=== PATIENT | female | born 2000 | race Caucasian/White ===

== ENCOUNTER 2023-02-24 01:32 | Emergency (ER) | payer SELFPAY ==
--- NOTE | ~2023-02-24 | XR_ITS ---
Clinical Indication: Pain PA and lateral views of the chest: Comparison: None Findings: The lungs are clear, without evidence of focal consolidation or pleural effusion. Cardiome diastinal silhouette is within normal limits. Bones and soft tissues are unremarkable. Impression: Normal chest. Reviewed, dictated and finalized at location . Impression: Normal chest.
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
== END 2023-02-24 08:44 | disposition home or self-care (01) ==
PROVIDERS: Emergency Provider General Practice
DX: S29.012A Strain of muscle and tendon of back wall of thorax, initial encounter (principal); F17.290 Nicotine dependence, other tobacco product, uncomplicated; V43.53XA Car driver injured in collision with pick-up truck in traffic accident, initial encounter
CPT/HCPCS: 71046; 99283; A9270

== ENCOUNTER 2023-09-21 15:20 | Emergency (ER) | payer OTHER, SELFPAY ==
--- NOTE | ~2023-09-21 | XR_ITS ---
EXAMINATION: XR chest 1V portable Exam Date/Time: 09/21/2023 19:12 TELEPHONIC NURSE CASE MANAGER HISTORY: congestion, cp, sob; c/f PNA Comparison: 02/24/2023. RESULT: Lines, tubes, and devices: None. Lungs and pleura: Clear. Cardiomediastinal silhouette: Stable. Other: No acute osseous or upper abdominal finding. IMPRESSION: No acute cardiopulmonary process. Reviewed, dictated and finalized at location K. PHONIC NURSE CASE MANAGER
[2023-09-21 15:22] VITALS: BP 144/101; PULSE 93; RESP 20; TEMP 36.3; O2SAT 100
--- NOTE | 2023-09-21 15:26 | ECG_ITS ---
Measurements Intervals [place] Rate: 87 P: 46 [place]: 143 QRS: 51 QRSD: 92 T: 6 QT: 366 QTc: 441 Interpretive Statements SINUS RHYTHM WITH SINUS ARRHYTHMIA NONSPECIFIC T-WAVE ABNORMALITY NO PREVIOUS ECG AVAILABLE FOR COMPARISON Electronically Signed On 09-21-2023 20:18:47 REGISTERED RESPIRATORY THERAPIST by Milka Savage M.D.
[2023-09-21 16:12] LABS: Influenza A QL RT-PCR Negative (Negative); Influenza B QL RT-PCR Negative (Negative); RSV RNA, RT-PCR Negative (Negative); SARS-CoV-2 RNA PCR Negative (Negative)
[2023-09-21 18:11] VITALS: O2SAT 100
--- NOTE | 2023-09-21 18:34 | ED.URI ---
HPI - URI/Sore Throat General Chief Complaint: Upper Respiratory Infection Stated Complaint: HARD TO CATCH BREATH,CONGESTION,CHILLS BODY ACHES Time Seen by Provider: 09/21/23 18:33 Source: patient Mode of arrival: ambulatory Limitations: no limitations History of Present Illness HPI Narrative: 23 yo who presents with congestion. She has been having chills and body aches for 1 week. No cough. She is experiencing shortness of breath and chest pain. Her chest feels tight and she is lightheaded at times. She thought it was heartburn because after she eats it is sometimes difficult to swallow and she felt like she had acid reflux on with a burning taste. She tried TUms, Alkaseltzer and omeprazole. She also tried an inhaler she had at home for unclear reasons (no diagnosis of asthma or bronchitis, had it from several years ago for unknown diagnosis). Lives with her boyfriend; he is not sick. Today while on her work break she was eating [employer] and had symptoms, feeling lightheaded, thus she came to the ED. No lower extremity edema/unilateral swelling, recent surgery/immobilization, history of PE/DVT, family hx of DVT/PE, hemoptysis, or recent travel. Related Data Allergies Allergy/AdvReac Type Severity Reaction Status Date / Time No Known Allergies Allergy Verified 09/21/23 19:19 [facility] [place] Past Medical History Medical History (Updated 09/22/23 @ 00:00 by Ana Cristina Meza) Patient denies medical problems Social History Social History (Updated 02/24/23 @ 10:25 by Jennifer Gonsalez MD) Tobacco type: e-cigarettes/vaping Exam Narrative: GENERAL: Well-appearing, well-nourished, and in no acute distress. HEAD: Normocephalic, atraumatic. EYES: Non injected, non icteric ENT: Nares clear, no rhinorrhea or epistaxis. NECK: Supple. No meningismus CHEST: Clear to auscultation without wheezes/crackles, areas of consolidation. No respiratory distress. Speaking in full sentences HEART: Regular rate and rhythm. . ABDOMEN: Soft, nondistended. EXTREMITIES: Normal range of motion. No edema. SKIN: Warm, dry, no rash. NEURO: No focal deficits. Alert and oriented x3. PSYCH: Normal mood and affect. Course Vital Signs Vital signs: Vital Signs Temperature 97.3 F L 09/21/23 15:22 Pulse Rate 93 09/21/23 15:22 Respiratory Rate 20 09/21/23 15:22 Blood Pressure 144/101 H 09/21/23 15:22 Pulse Oximetry 100 09/21/23 15:22 Oxygen Delivery Room Air 09/21/23 15:22 Temperature 97.3 F L 09/21/23 15:22 Pulse Rate 65 09/21/23 19:00 Respiratory Rate 19 09/21/23 19:00 Blood Pressure 123/87 09/21/23 19:00 Pulse Oximetry 100 09/21/23 19:00 Oxygen Delivery Room Air 09/21/23 18:11 MDM - URI/Sore Throat MDM Narrative Medical decision making narrative: This is a 23 yo who presents with congestion as well as 1 week of chills and body aches. She also notes an episode or two of heartburn. Her chest felt tight and she felt lightheaded. Symptoms sound either viral or GI related and patient has a reassuring physical exam, though initially hypertensive (normalized on repeat). Considered pulmonary embolism however can apply pERC rule so will defer further testing. 4plex testing negative. Also obtained a cxr which was negative. Given a GI cocktail. Patient discharged in stable condition. Differential Diagnosis Differential diagnosis: Likely upper respiratory infection, viral infection, influenza and other (GERD) Lab Data Attestation: I reviewed the patient's lab results. Labs: Lab Results 09/21/23 Range/Units 15:30 Influenza A (RT-PCR) Negative (Negative) Influenza B (RT-PCR) Negative (Negative) RSV (RT-PCR) Negative (Negative) SARS-CoV-2 RNA (RT-PCR) Negative (Negative) Imaging Data Attestation: I personally reviewed and interpreted this imaging study as follows: Radiologist's impression: No acute cardiopulmonary process. Discharge Plan Discharge Clinical
[2023-09-21 19:00] VITALS: BP 123/87; PULSE 65; RESP 19; O2SAT 100
[2023-09-21] MEDS: BELLADONNA ALK/PHENOB ELIX 10 ML, MAG HYDROX/ALUMINUM HYD/SIMETH 30 ML, LIDOCAINE HCL 2... PO (19:19)
== END 2023-09-21 19:50 | disposition home or self-care (01) ==
PROVIDERS: Emergency Medicine; Emergency Provider Student in an Organized Health Care Education/Training Program
DX: B34.9 Viral infection, unspecified (principal); Z20.822 Contact with and (suspected) exposure to COVID-19; F17.290 Nicotine dependence, other tobacco product, uncomplicated; R94.31 Abnormal electrocardiogram [ECG] [EKG]
CPT/HCPCS: 71045; 87637; 93005; 99283; A9270